=== PATIENT | female | born 1990 | race Asian ===

== ENCOUNTER 2021-04-29 17:10 | Inpatient (IN) | payer BC, OTHER ==
[2021-04-29] MEDS ORDERED: METHYLERGONOVINE MALEATE 0.2 MG/1 ML AMP IM PRN (17:40)
[2021-04-29] MEDS ORDERED: BISACODYL 10 MG SUPP.RECT RC PRN (17:40)
[2021-04-29] MEDS ORDERED: oxyCODONE HCL 5 MG TABLET PO PRN (17:40)
[2021-04-29] MEDS ORDERED: WITCH HAZEL 50% (TUCKS) 40 PAD/JAR PAD TP PRN (17:40)
[2021-04-29] MEDS ORDERED: BENZOCAINE 20% 57 GM BOTTLE TP PRN (17:40)
[2021-04-29] MEDS ORDERED: IBUPROFEN 600 MG TABLET (FP) PO PRN (17:40)
[2021-04-29] MEDS ORDERED: BENZOCAINE 28 GM HEMORRHOIDAL OINTMENT TP PRN (17:40)
[2021-04-29] MEDS ORDERED: OXYTOCIN 20 UNITS in 0.9% NS 20 UNIT/1,000 ML INFUS.BAG IV ONE (17:43)
[2021-04-29] MEDS ORDERED: AMPICILLIN - 2 GM in SODIUM CHLORIDE 100 ML IVPB ONE (17:45)
[2021-04-29] MEDS ORDERED: OXYTOCIN 20 UNITS in 0.9% NS 20 UNIT/1,000 ML INFUS.BAG IV SCH (17:45)
[2021-04-29] MEDS ORDERED: AMPICILLIN SODIUM 2 GM VIAL ONE (17:47)
[2021-04-29 17:48] VITALS: BMI 30.5
[2021-04-29] MEDS ORDERED: ELECTROLYTE-148 SOLN 1,000 ML IV SCH (18:15)
[2021-04-29 19:10] LABS: BASO % 0.3 % (0-2.0); HEMATOCRIT 32.6 % (32.4-45.2); HEMOGLOBIN 10.8 GM/dL (10.7-15.3); LYMPH % 5.3 % (8-40); MCH 28.2 pg (25.7-33.7); MCHC 33.1 g/dl (32.0-36.0); MEAN CELL VOLUME 85.3 fl (80-96); MEAN PLT VOLUME 9.9 fl (7.5-11.1); MONO % 3.2 % (3.8-10.2); NEUT % 91.2 % (42.8-82.8); PLATELET COUNT 233 10^3/uL (134-434); RBC 3.82 M/mm3 (3.60-5.2); RDW 15.3 % (11.6-15.6); WHITE BLOOD COUNT 17.3 K/mm3 (4.0-10.0)
[2021-04-29 19:36] LABS: INR 0.87 (0.83-1.09)
[2021-04-29 19:37] LABS: ALBUMIN 2.7 g/dl (3.4-5.0); CALCIUM 8.6 mg/dL (8.5-10.1)
[2021-04-29 19:38] LABS: BLOOD UREA NITROGEN 10.2 mg/dL (7-18)
[2021-04-29 19:39] LABS: ACTIVATED PTT 27.8 SECONDS (25.2-36.5)
[2021-04-29 19:42] LABS: BILIRUBIN,TOTAL 0.1 mg/dL (0.2-1); CREATININE 0.7 mg/dL (0.55-1.3)
[2021-04-29] MEDS: ACETAMINOPHEN 325 MG TABLET (FP) PO PRN (20:15)
[2021-04-29 20:18] LABS: HEPATITIS B SURFACE AG MATERN NON-REACTIVE (NONREACTIVE)
[2021-04-29] MEDS ORDERED: ACETAMINOPHEN 325 MG TABLET (FP) ONE (20:18)
[2021-04-29 20:47] LABS: HIV INTERPRETATION NEGATIVE (NEGATIVE)
[2021-04-29] MEDS ORDERED: AMPICILLIN - 1 GM in SODIUM CHLORIDE 100 ML IVPB SCH (22:00)
[2021-04-30 07:22] LABS: HEMATOCRIT 31.8 % (32.4-45.2); HEMOGLOBIN 10.5 GM/dL (10.7-15.3); MCH 28.3 pg (25.7-33.7); MCHC 33.2 g/dl (32.0-36.0); MEAN CELL VOLUME 85.3 fl (80-96); MEAN PLT VOLUME 9.8 fl (7.5-11.1); PLATELET COUNT 246 10^3/uL (134-434); RBC 3.72 M/mm3 (3.60-5.2); RDW 15.8 % (11.6-15.6); WHITE BLOOD COUNT 20.5 K/mm3 (4.0-10.0)
[2021-04-30] MEDS: ACETAMINOPHEN 325 MG TABLET (FP) PO PRN (10:11)
[2021-04-30] MEDS: FERROUS SO4 325 MG TABLET (FP) PO SCH ×3 (10:11→17:32)
[2021-04-30] MEDS: PRENATAL VITAMINS W/ FOLIC ACID TABLET (FP) PO SCH (10:11)
[2021-04-30 11:33] LABS: URINE APPEARANCE CLEAR; URINE BILIRUBIN NEGATIVE (NEGATIVE); URINE COLOR YELLOW; URINE GLUCOSE (UA) NEGATIVE (NEGATIVE); URINE KETONE NEGATIVE (NEGATIVE); URINE LEUK ESTERASE TRACE (NEGATIVE); URINE NITRITE NEGATIVE (NEGATIVE); URINE PROTEIN NEGATIVE (NEGATIVE); URINE UROBILINOGEN 0.2 mg/dL (0.2-1.0)
[2021-04-30 12:02] LABS: ANISOCYTOSIS 2+; MACROCYTOSIS 0; OVALOCYTE 1+
[2021-04-30] MEDS ORDERED: SENNOSIDES/DOCUSATE COMBO (SENNA PLUS) TABLET (UD) PO PRN (22:00)
[2021-05-01] MEDS: PRENATAL VITAMINS W/ FOLIC ACID TABLET (FP) PO SCH (09:30)
[2021-05-01] MEDS: FERROUS SO4 325 MG TABLET (FP) PO SCH (09:30)
[2021-05-01 09:33] VITALS: BP 118/78; PULSE 97; TEMP 98.2
== END 2021-05-01 13:06 | disposition home or self-care (01) | DRG 807 ==
LOC: JLDR 17:10 → J3W 20:53
PROVIDERS: ADMIT Obstetrics & Gynecology; ATTEND Obstetrics & Gynecology
PROC: 0HQ9XZZ Repair Perineum Skin, External Approach (ICD-10-PCS; principal; 2021-04-29)
PROC: 10E0XZZ Delivery of Products of Conception, External Approach (ICD-10-PCS; 2021-04-29)
DX: O70.0 First degree perineal laceration during delivery (principal); Z37.0 Single live birth; O48.0 Post-term pregnancy; Z3A.40 40 weeks gestation of pregnancy
CPT/HCPCS: 36415; 59409; 80053; 81003; 81015; 85025; 85610; 85730; 86762; 86780; 86850; 86900; 86901; 87340; 87389; C9803-CS; U0003; U0005

== ENCOUNTER 2024-09-03 14:45 | Emergency (ER) | payer BC, OTHER ==
[2024-09-03 15:02] VITALS: BP 135/60; PULSE 90; RESP 20; TEMP 98.6; BMI 32.7
[2024-09-03] MEDS ORDERED: MAG HYDROX/AL HYDROX/SIMETH 30 ML UNIT-DOSE CUP ONE (16:12)
[2024-09-03] MEDS ORDERED: FAMOTIDINE 20 MG TABLET ONE (16:12)
[2024-09-03] MEDS: MAG HYDROX/AL HYDROX/SIMETH -MYLANTA- ORAL SUSPENSION PO ONE (16:13)
[2024-09-03] MEDS: FAMOTIDINE 20 MG TABLET PO ONE (16:13)
[2024-09-03 16:25] LABS: ABSOLUTE IMMATURE GRANULOCYTES 0.05 x10^3/uL (0.0-0.031); BASOPHILS # 0.03 x10^3/uL (0.01-0.08); EOSINOPHIL % 1.9 % (0.7-5.8); EOSINOPHILS # 0.18 x10^3/uL (0.04-0.36); MCHC 31.7 g/dl (32.2-35.5); MEAN CELL VOLUME 86.5 fl (79.4-94.8); MEAN PLT VOLUME 10.8 fl (9.4-12.3); MONOCYTE # 0.77 x10^3/uL (0.24-0.86); MONOCYTE % 7.9 % (4.7-12.5); RDW 16.2 % (12.1-16.8)
[2024-09-03 17:45] LABS: ALK PHOS 119.0 U/L (45-117); CO2 22.0 mmol/L (21-32); CREATININE 0.9 mg/dL (0.55-1.3); GLUCOSE,RANDOM 105.0 mg/dL (74-106); SGOT/AST 42.0 U/L (15-37); SGPT/ALT 114.0 U/L (13-61); TOT PROT 6.9 g/dl (6.4-8.2)
[2024-09-03 18:14] LABS: HCV DIAGNOSTIC IN-HOUSE W/RFLX NON-REACTIVE (NONREACTIVE)
[2024-09-03 20:41] LABS: HIV INTERPRETATION NEGATIVE (NEGATIVE)
== END 2024-09-03 18:02 | disposition home or self-care (01) ==
LOC: JER 14:45
DX: R10.13 Epigastric pain (principal); R16.0 Hepatomegaly, not elsewhere classified
CPT/HCPCS: 36415; 76705-TC; 80053; 83690; 84484; 85025; 86803; 87389; 99284-25